=== PATIENT | male | born 1935 | race Caucasian/White ===

== ENCOUNTER 2016-12-15 08:20 | Outpatient (CLI) | payer MEDICARE, BC ==
[2016-06-22 12:54] VITALS: BP 147/57
[2016-12-15 08:43] LABS: BASOPHILS % 0.8 (0.0-1.5); EOSINOPHILS % 6.7 % (0.0-6.8); LYMPHOCYTES # 0.6 # k/uL (0.6-4.0); MEAN CORPUSCULAR HEMOGLOBIN 29.5 pg (28.0-34.0); MONOCYTES # 0.2 # k/uL (0.0-0.9); MONOCYTES % 4.4 % (0.0-11.0); NEUTROPHILS # 4.2 # k/uL (1.4-7.7)
== END 2016-12-15 08:22 ==
LOC: LAB 08:20
PROVIDERS: ATTEND Internal Medicine Nephrology
DX: N18.3 Chronic kidney disease, stage 3 (moderate) (principal); I11.9 Hypertensive heart disease without heart failure; R60.9 Edema, unspecified; Z68.29 Body mass index [BMI] 29.0-29.9, adult
CPT/HCPCS: 36415; 80069; 85025

== ENCOUNTER 2017-01-21 08:32 | Outpatient (CLI) | payer MEDICARE, BC ==
[2016-06-22 12:54] VITALS: BP 147/57
[2017-01-21 09:25] LABS: eGFR (African) > 60; eGFR (Non-African) > 60
== END 2017-01-21 08:33 ==
LOC: LAB 08:32
PROVIDERS: ATTEND Internal Medicine
DX: N18.9 Chronic kidney disease, unspecified (principal)
CPT/HCPCS: 36415; 80053

== ENCOUNTER 2017-02-25 15:12 | Emergency (ER) | payer MEDICARE, BC ==
[2017-02-25 15:40] VITALS: BP 174/76
--- NOTE | 2017-02-26 03:45 | Diagnostic Imaging Report ---
HERNAN OTERO~ [facility] [id number] [facility] [address] [place] [address]. [id number] ~ ~ ~ ~ Report Submission Date: February 25, 2017 5:13:19 PM CDT Patient ~ Study Name: BRENDA ALCARAZ ~ Date: February 25, 2017 4:16:36 PM CDT ~ Modality Type: CT\SR Gender: M ~ Description: CT C-SPINE W/O CONTRAS : 33 ~ Institution: [facility] Physician: HERNAN OTERO ~ ~ ~ ~ CT cervical spine Date of examination: 25 Feb 2017 CLINICAL HISTORY:~ CT C-SPINE, FALL TODAY, PRIOR C-SPINE SURGERIES, UNABLE TO LAY HEAD DOWN FLAT (Hx) / FALL (DICOM Hx) TECHNIQUE: 2.5 mm contiguous axial images of the cervical spine with sagittal and coronal reconstructions.~ FINDINGS: Multilevel disc space narrowing is present. Anterior plate and screws are present at C3/4 for cervical fusion.. Bone graft is present at C4/C5 and C5/C6 for cervical fusion.. The disc space at C6/C7 is narrowed. Ankylosis of the C 23 facet joints is present bilaterally. There is posterior cervical fusion extending from C2 to C4. Extensive facet joint degenerative arthritis is present in the cervical spine. Carotid artery calcification surgical clips are present in the neck. Left thoracic spine T1 laminectomy is present. IMPRESSION: No evidence of acute cervical spine fracture or subluxation Multilevel cervical fusion C2/C3 facet joint ankylosis Cervical spondylosis ~ Electronically signed on February 25, 2017 5:13:19 PM CDT by: Milo LOPEZ
--- NOTE | 2017-02-26 03:47 | Diagnostic Imaging Report ---
HERNAN OTERO~ [facility] [address] [address] ~ ~ ~ ~ Report Submission Date: February 25, 2017 5:11:18 PM CDT Patient ~ Study Name: BRENDA ALCARAZ ~ Date: February 25, 2017 4:21:07 PM CDT ~ Modality Type: CR Gender: M ~ Description: LOWER EXTREMITY : 33 ~ Institution: [facility] Physician: HERNAN OTERO ~ ~ ~ ~ 3 views left knee History: LEFT KNEE, PAIN AFTER FALL TODAY, PRIOR KNEE REPLACEMENT SURGERIES Findings: No comparison studies Post revision total knee arthroplasty with intact hardware. Bones are demineralized, no obvious evidence of acute fracture is identified. Several osseous fragments are noted at the knee joint. Postsurgical changes are noted at the knee No obvious evidence of lossening of the hardware Impression: Post revision total left knee arthroplasty, intact hardware without evidence of loosening. No obvious evidence of acute fracture or dislocation. ~ Electronically signed on February 25, 2017 5:11:18 PM CDT by: Freya LOPEZ
--- NOTE | 2017-02-26 03:48 | Diagnostic Imaging Report ---
HERNAN OTERO~ [facility] [address] [facility] [address] [place], [place]. [address] ~ ~ ~ ~ Report Submission Date: February 25, 2017 4:59:44 PM CDT Patient ~ Study Name: BRENDA ALCARAZ ~ Date: February 25, 2017 4:14:35 PM CDT ~ Modality Type: CT\SR Gender: M ~ Description: CT BRAIN W/O CONTRAST : 33 ~ Institution: [facility] Physician: HERNAN OTERO ~ ~ ~ ~ CT head History: PAIN/CONTUSION AFTER FALL TODAY No comparison studies Soft tissue swelling/ small hematoma is noted in the right ~frontal region. No evidence of acute intracranial hemorrhage. No midline shift. Cerebral atrophy. 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 No skull fracture. Paranasal air sinuses and mastoid air cells are well aerated ~ Electronically signed on February 25, 2017 4:59:44 PM CDT by: Freya LOPEZ
--- NOTE | 2017-02-26 09:05 | ED Physician Documentation ---
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 denies: weakness, numbness, neck pain, back pain, ankle swelling, leg swelling EYES/ENT: none CVS/RESP: none GI/: denies: problems urinating, nausea, vomiting - PAST HX Past History: other (chf, htn, hyperlipidemia, hypothyroidism) Immunizations: UTD Allergies/Adverse Reactions: Allergies Allergy/AdvReac Type Severity Reaction Status Date / Time oxycodone HCl Allergy Unknown Verified 02/25/17 15:54 [From OxyContin] Sulfa (Sulfonamide Allergy Unknown Verified 02/25/17 15:54 Antibiotics) Home Medications: Ambulatory Orders Medication Instructions Recorded Diltiazem HCl [Diltiazem ER] 120 tab PO D 02/29/16 Fluticasone/Vilanterol [Breo 1 inh INH DIRECTED 02/29/16 Ellipta 100-25 Mcg INH] Levothyroxine Sodium [Synthroid] 1 tab PO D 02/29/16 Simvastatin [Simvastatin] 1 tab PO D 02/29/16 Carvedilol [Coreg] 25 mg PO BID 06/22/16 Clonidine HCl [Clonidine HCl] 0.2 mg PO DAILY 06/22/16 Losartan Potassium [Losartan 100 mg PO DAILY 06/22/16 Potassium] Montelukast Sodium [Montelukast 10 mg PO PM 06/22/16 Sodium] Aspirin [Rosamaria] 81 mg PO DAILY 02/25/17 Clopidogrel Bisulfate [Plavix] 75 mg PO DAILY 02/25/17 Famotidine [Pepcid] 20 mg PO DAILY 02/25/17 Furosemide [Lasix] 40 mg PO DAILY 02/25/17 - SOCIAL HX Smoking History: non-smoker Alcohol Use: none Drug Use: none - FAMILY HX Family History: no significant history - VITAL SIGNS Vital Signs: Vital Signs Temp Pulse Resp BP Pulse Ox 99.1 F 66 20 174/76 95 02/25/17 15:30 02/25/17 15:30 02/25/17 15:30 02/25/17 15:30 02/25/17 15:30 - REVIEWED ASSESSMENTS Nursing Assessment Reviewed: Yes Vitals Reviewed: Yes Progress - Results/Orders Results/Orders: x-ray left knee, ct c-spine and head ordered - Progress Progress: pt. stable entire time in er Critical Care Note - Critical Care Note Total Time (mins): 0 ED Results Lab/Radiology - Lab Results Lab Results: none ordered - Radiology Radiology Impressions: all x-rays and ct scans unremarkable - Orders Orders: ED Orders Category Date Time Status CT BRAIN W/O CONTRAST Stat Exams 02/25/[address] C-SPINE W/O CONTRAST Stat Exams 02/25/17 Taken KNEE 3 VIEWS [RAD] Stat Exams 02/25/17 Taken Fall Physical Exam - Physical Exam General Appearance: mild distress Head: trauma (bruising forehead). No: raccoon eyes, Velazco's sign Neck: non-tender, painless ROM, trachea midline Eye: MERLINE, EOMI, lids & conjunct. nml ENT: nml external inspection, no dental injury, no oral injury, airway nml Resp/CVS: chest non-tender, no ecchymosis, breath sounds nml, no resp. distress , heart sounds nml, rib tenderness Abdomen: soft, no organomegaly, normal bowel sounds, no abdominal bruit, no distension, non-tender Neuro: oriented x3, CN's nml as tested, sensation nml, motor nml, mood/affect nml, health equipment servicer nml, reflexes nml Skin: other (bruising forehead and left knee) Back: normal inspection, no CVA tenderness, no vertebral tenderness Extremities: other (left knee positive edema, bruising, no lig. laxity) Joint: effusion (left knee). No: ligamentous instability Discharge Clincal Impression: Minor head injury Qualifiers: Encounter type: initial encounter Qualified Code(s): S00.90XA - Unspecified superficial injury of unspecified part of head, initial encounter Left knee sprain Qualifiers: Encounter type: initial encounter Involved ligament of knee: unspecified ligament Qualified Code(s): S83.92XA - Sprain of unspecified site of left knee, initial encounter Referrals: Loki Ochoa DO [Primary Care Provider] - 2 Days Home Medications: Ambulatory Orders Diltiazem HCl [Diltiazem ER] 120 tab PO D 02/29/16 Fluticasone/Vilanterol [Breo Ellipta 100-25 Mcg INH] 1 inh INH DIRECTED 02/28 Levothyroxine Sodium [Synthroid] 1 tab PO D 02/29/16 Simvastatin [Simvastatin] 1 tab PO D 02/29/16 Carvedilol [Coreg] 25 mg PO BID 06/22/16 Clonidine HCl [Clonidine HCl] 0.2 mg PO DAILY 06/22/16 Losartan Potassium [Losartan Potassium] 100 mg PO DAILY 06/22/16 Montelukast Sodium [Montelukast Sodium] 10 mg PO PM 06/22/16 Aspirin [Rosamaria] 81 mg PO DAILY 02/25/17 Clopidogrel Bisulfate [Plavix] 75 mg PO DAILY 02/25/17 Famotidine [Pepcid] 20 mg PO DAILY 02/25/17 Furosemide [Lasix] 40 mg PO DAILY 02/25/17 Comments: discharged with otc tylenol or motrin as needed for pain Condition: Stable Disposition: 01 HOME, SELF-CARE Decision to Admit: NO Decision Time: 17:25
== END 2017-02-25 17:53 | disposition home or self-care (01) ==
LOC: ED 15:12
DX: S00.90XA Unspecified superficial injury of unspecified part of head, initial encounter (principal); S83.92XA Sprain of unspecified site of left knee, initial encounter; W19.XXXA Unspecified fall, initial encounter; Y93.9 Activity, unspecified; Y99.9 Unspecified external cause status
CPT/HCPCS: 70450; 72125; 73562

== ENCOUNTER 2017-04-05 09:22 | Outpatient (CLI) | payer MEDICARE, BC ==
[2017-04-05 09:54] LABS: BASOPHILS % 1.1 (0.0-1.5); EOSINOPHILS % 7.8 % (0.0-6.8); MEAN CORPUSCULAR HEMOGLOBIN 32.4 pg (28.0-34.0); MEAN CORPUSCULAR VOLUME 97.6 fl (80.0-100.0); MONOCYTES % 6.7 % (0.0-11.0)
== END 2017-04-05 09:23 ==
LOC: LAB 09:22
PROVIDERS: ATTEND Internal Medicine Nephrology
DX: N18.3 Chronic kidney disease, stage 3 (moderate) (principal); I10 Essential (primary) hypertension; R60.9 Edema, unspecified; Z68.29 Body mass index [BMI] 29.0-29.9, adult
CPT/HCPCS: 36415; 80069; 85025

== ENCOUNTER 2017-07-20 09:22 | Outpatient (CLI) | payer MEDICARE, BC ==
[2017-07-20] MEDS ORDERED: ALBUTEROL SULFATE 2.5 MG/3 ML AMPUL.NEB NEB ONE (09:34)
== END 2017-07-20 09:23 ==
LOC: RT 09:22
PROVIDERS: ATTEND Nurse Practitioner
DX: G47.33 Obstructive sleep apnea (adult) (pediatric) (principal); R06.00 Dyspnea, unspecified
CPT/HCPCS: 94060

== ENCOUNTER 2018-04-11 08:58 | Emergency (ER) | payer MEDICARE, BC ==
--- NOTE | 2018-04-11 09:21 | ED Physician Documentation ---
General Adult - HISTORIAN Historian: patient, spouse - HPI Chief Complaint: General Adult Further Comments: yes (82 year old male patient presents with complaint of non- healing wound on right lower leg. Patient states he hit his benz getting into the car on Wednesday.) - ROS CONST: no problems EYES/ENT: none CVS/RESP: none GI/: none MS/SKIN/LYMPH: none NEURO/PSYCH: denies: headache, fainting, dizziness, tingling, numbness, difficulty walking, difficulty with speech, anxiety, depression, other - PAST HX Past History: COPD, A-Fib, CHF, hypertension Surgeries/Procedures: cholecystectomy, other (Bilateral knee replacements x 6) Allergies/Adverse Reactions: Allergies Allergy/AdvReac Type Severity Reaction Status Date / Time oxycodone HCl Allergy Unknown Verified 04/11/18 09:22 [From OxyContin] Sulfa (Sulfonamide Allergy Unknown Verified 04/11/18 09:22 Antibiotics) Home Medications: Ambulatory Orders Medication Instructions Recorded Diltiazem HCl [Diltiazem ER] 120 tab PO D 02/29/16 Fluticasone/Vilanterol [Breo 1 inh INH DIRECTED 02/29/16 Ellipta 100-25 Mcg INH] Levothyroxine Sodium [Synthroid] 1 tab PO D 02/29/16 Simvastatin [Simvastatin] 1 tab PO D 02/29/16 Clonidine HCl [Clonidine HCl] 0.2 mg PO TID 06/22/16 Losartan Potassium [Losartan 100 mg PO DAILY 06/22/16 Potassium] Famotidine [Pepcid] 20 mg PO DAILY 02/25/17 Furosemide [Lasix] 40 mg PO DAILY 02/25/17 Cephalexin [Keflex] 500 mg PO QID #28 capsule 04/11/18 Mupirocin [Bactroban] 1 appl TP BID #1 tube 04/11/18 Rivaroxaban [Xarelto] 10 mg PO DAILY 04/11/18 - SOCIAL HX Smoking History: non-smoker - FAMILY HX Family History: No - VITAL SIGNS Vital Signs: Vital Signs Temp Pulse Resp BP Pulse Ox 174/76 02/25/17 17:53 - REVIEWED ASSESSMENTS Nursing Assessment Reviewed: Yes Vitals Reviewed: Yes Progress - Progress Progress: Reviewed wound care instructions with patient and . Verbalized understanding. General Adult Physical Exam - PHYSICAL EXAM GENERAL APPEARANCE: [id number] N EENT: eye inspection normal, MERLINE RESPIRATORY: no resp distress, chest non-tender, breath sounds normal CVS: reg rate & rhythm, heart sounds normal, equal pulses, no murmur, no gallop , PMI nml, no JVD, no friction rub, 24 SKIN: warm/dry, normal color, other (Right lower extremity with 2 cm scab; erythema and hyperthermia noted around area; no drainage) EXTREMITIES: non-tender, normal range of motion, no evidence of injury, edema (1 -2+) NEURO: oriented X3, motor nml, sensation nml, mood/affect nml Discharge Clincal Impression: Cellulitis of right leg Prescriptions: Cephalexin [Keflex] 500 mg PO QID #28 capsule Mupirocin [Bactroban] 1 appl TP BID #1 tube Additional Instructions: Clean the laceration twice a day with hibiclens and rinse with water clean away any scabbed area Apply thin coat of antibiotic ointment after cleaning the wound. Cover with non-adherent bandage if able. If you have pain, take simple pain relief medication such as Tylenol or ibuprofen. Condition: Stable Disposition: 01 HOME, SELF-CARE Decision to Admit: NO Decision Time: 09:20
[2018-04-11 09:38] VITALS: BP 174/76
== END 2018-04-11 09:34 | disposition home or self-care (01) ==
LOC: ED 08:58
DX: L03.115 Cellulitis of right lower limb (principal)
CPT/HCPCS: 99282

== ENCOUNTER 2018-06-21 08:24 | Emergency (ER) | payer MEDICARE, BC ==
--- NOTE | 2018-06-21 09:03 | ED Physician Documentation ---
General Adult - HPI Stated Complaint: CELLULITIS Chief Complaint: Lower Extremity Injury Additional Information: 82-year-old white male who is developed some erythema or warmth associated to an open wound to the left lower extremity. Patient has had this for several days. Originalists seem to be getting better over the last 24 to 48 hours are seemed to be getting worse. Patient denies any fever or chills at this time. Patient has had some slight drainage from the area. - ROS CONST: no problems. denies: chills - PAST HX Past History: COPD, A-Fib, CHF, hypertension, other (diverticulitis, colon rupture.) Other History: other (abd ) Surgeries/Procedures: cholecystectomy, other (knee surgery, back surgery, necksurgery, cardiac stenting, carotid artery stenting) Immunizations: tetanus (6 yr ago) Allergies/Adverse Reactions: Allergies Allergy/AdvReac Type Severity Reaction Status Date / Time oxycodone HCl Allergy Unknown Verified 06/21/18 08:37 [From OxyContin] Sulfa (Sulfonamide Allergy Unknown Verified 06/21/18 08:37 Antibiotics) Home Medications: Ambulatory Orders Medication Instructions Recorded Diltiazem HCl [Diltiazem ER] 120 tab PO D 02/29/16 Fluticasone/Vilanterol [Breo 1 inh INH DIRECTED 02/29/16 Ellipta 100-25 Mcg INH] Levothyroxine Sodium [Synthroid] 1 tab PO D 02/29/16 Simvastatin 1 tab PO D 02/29/16 Clonidine HCl 0.2 mg PO TID 06/22/16 Losartan Potassium 100 mg PO DAILY 06/22/16 Famotidine [Pepcid] 20 mg PO DAILY 02/25/17 Furosemide [Lasix] 40 mg PO DAILY 02/25/17 Mupirocin [Bactroban] 1 appl TP BID #1 tube 04/11/18 Rivaroxaban [Xarelto] 10 mg PO DAILY 04/11/18 Cephalexin [Keflex] 500 mg PO TID #21 capsule 06/21/18 - SOCIAL HX Smoking History: non-smoker Alcohol Use: none Drug Use: none - FAMILY HX Family History: No - VITAL SIGNS Vital Signs: Vital Signs Temp Pulse Resp BP Pulse Ox 97.3 F L 55 L 20 155/87 98 06/21/18 08:34 06/21/18 08:34 06/21/18 08:34 06/21/18 08:34 06/21/18 08:34 - REVIEWED ASSESSMENTS Nursing Assessment Reviewed: Yes Vitals Reviewed: Yes General Adult Physical Exam - PHYSICAL EXAM GENERAL APPEARANCE: mild distress NECK: normal inspection RESPIRATORY: no resp distress, chest non-tender, breath sounds normal. No: wheezes, rales, rhonchi CVS: heart sounds normal, irregularly irregular rhy ABDOMEN: soft, no organomegaly, normal bowel sounds SKIN: other (erythematous (4 cm) and small nodule to the L pretibial area. Tender to touch. Mild warmth noted. ) EXTREMITIES: other (LN normal) NEURO: oriented X3, mood/affect nml, cognition normal Discharge Clincal Impression: Left leg cellulitis Prescriptions: Cephalexin [Keflex] 500 mg PO TID #21 capsule Referrals: Loki Ochoa, [Primary Care Provider] - 2 Days Additional Instructions: Warm compress to the leg area Take Cephalexin 500mg 3 times a day for one week If redness seems to be spreading to see Dr Ochoa or return to the ED. Condition: Stable Disposition: 01 HOME, SELF-CARE Decision to Admit: NO Date of Decison to Admit: 06/21/18 Decision Time: 09:09
[2018-06-21 09:18] VITALS: BP 130/73
== END 2018-06-21 09:17 | disposition home or self-care (01) ==
LOC: ED 08:24
DX: L03.116 Cellulitis of left lower limb (principal)
CPT/HCPCS: 99283

== ENCOUNTER 2019-04-18 09:32 | Emergency (ER) | payer MEDICARE, BC ==
--- NOTE | 2019-04-18 09:40 | ED Physician Documentation ---
General Adult - HISTORIAN Historian: patient - HPI Stated Complaint: sore on left lower leg Chief Complaint: Skin Rash Onset: days ago (3) Timing: still present Severity: mild Further Comments: yes (He denies any obvious injury. He states has had the sore x 3 days. No fever. No significant pain. the area is draining. He has no other complaints) - ROS CONST: no problems MS/SKIN/LYMPH: rash - PAST HX Past History: hypertension Allergies/Adverse Reactions: Allergies Allergy/AdvReac Type Severity Reaction Status Date / Time oxycodone HCl Allergy Unknown Verified 06/21/18 08:37 [From OxyContin] Sulfa (Sulfonamide Allergy Unknown Verified 06/21/18 08:37 Antibiotics) Home Medications: Ambulatory Orders Medication Instructions Recorded Diltiazem HCl [Diltiazem ER] 120 tab PO D 02/29/16 Fluticasone/Vilanterol [Breo 1 inh INH DIRECTED 02/29/16 Ellipta 100-25 Mcg INH] Levothyroxine Sodium [Synthroid] 1 tab PO D 02/29/16 Simvastatin 1 tab PO D 02/29/16 Clonidine HCl 0.2 mg PO TID 06/22/16 Losartan Potassium 100 mg PO DAILY 06/22/16 Famotidine [Pepcid] 20 mg PO DAILY 02/25/17 Furosemide [Lasix] 40 mg PO DAILY 02/25/17 Mupirocin 2% Oint. [Bactroban] 1 appl TP BID #1 tube 04/11/18 Rivaroxaban [Xarelto] 10 mg PO DAILY 04/11/18 Cephalexin [Keflex] 500 mg PO TID #21 capsule 06/21/18 - SOCIAL HX Smoking History: non-smoker Alcohol Use: none Drug Use: none - FAMILY HX Family History: No - VITAL SIGNS Vital Signs: Vital Signs Temp Pulse Resp BP Pulse Ox 130/73 06/21/18 09:17 - REVIEWED ASSESSMENTS Nursing Assessment Reviewed: Yes Vitals Reviewed: Yes General Adult Physical Exam - PHYSICAL EXAM GENERAL APPEARANCE: no distress EENT: eye inspection normal, no signs of dehydration NECK: normal inspection RESPIRATORY: no resp distress, chest non-tender, breath sounds normal CVS: reg rate & rhythm, heart sounds normal ABDOMEN: soft, normal bowel sounds, no distension, non-tender BACK: normal inspection SKIN: warm/dry, other (left lower leg 2 cm area with yellow drainge and clear drainage. No pain. Pulses + sensation + and edema non pitting ) EXTREMITIES: non-tender, normal range of motion, edema NEURO: oriented X3 Discharge Clincal Impression: Left leg cellulitis Referrals: Loki Ochoa, [Primary Care Provider] - 2 Days Comments: 1. Keflex 500 mg take 1 by mouth twice daily x 10 days 2. Keep area clean and dry 3. Elevate leg when possible 4. Follow up with PCP in 2-4 days or sooner for any change in wound 5. Return to ER for any increasing concerns Condition: Stable Disposition: 01 HOME, SELF-CARE Decision to Admit: NO Date of Decison to Admit: 04/19/19 Decision Time: 10:10
== END 2019-04-18 10:16 | disposition home or self-care (01) ==
LOC: ED 09:32
DX: L03.116 Cellulitis of left lower limb (principal)
CPT/HCPCS: 87070

== ENCOUNTER 2019-09-26 09:37 | Emergency (ER) | payer MEDICARE, BC ==
--- NOTE | 2019-09-26 10:14 | ED Physician Documentation ---
Lower Extremity Problem - HISTORIAN Historian: patient, spouse - HPI Stated Complaint: leg pain & swelling Chief Complaint: Lower Extremity Problem Additional Information: 83 year old male presents ambulatory with . states he fell a week ago and since then has had left lower extremity swelling and redness. he is on Eliquis and diuretic; however, is very concerned about a blood clot and would like it ruled out. There is noted edema to both extremities; patient states that he does not wear vivienne hose as ordered because they are not comfortable. Location of Injury: L leg Onset: days ago Timing: still present, better Recent Injury: Yes (1 week ago from standing position- fall) Where: home Severity: mild Quality: swelling, tenderness Exacerbated By: walking Relieved By: rest Associated Symptoms: denies: chest pain, shortness of breath, rapid heart rate - ROS CONST: no problems MS/SKIN/LYMPH: none CVS/RESP: none GI/: none EYES/ENT: none NERUO/PSYCH: difficulty walking - PAST HX Past History: other (COPD) PE Risk Factors: hypertension Other History: cardiac disease, CAD, hypertension Surgeries/Procedures: cholecystectomy, other (BKR) Immunizations: UTD Allergies/Adverse Reactions: Allergies Allergy/AdvReac Type Severity Reaction Status Date / Time oxycodone HCl Allergy Unknown Verified 09/26/19 10:01 [From OxyContin] Sulfa (Sulfonamide Allergy Unknown Verified 09/26/19 10:01 Antibiotics) Home Medications: Ambulatory Orders Medication Instructions Recorded Levothyroxine Sodium [Synthroid] 1 tab PO D 02/29/16 Simvastatin 1 tab PO D 02/29/16 Clonidine HCl 0.2 mg PO TID 06/22/16 Losartan Potassium 100 mg PO DAILY 06/22/16 Famotidine [Pepcid] 20 mg PO DAILY 02/25/17 Furosemide [Lasix] 40 mg PO DAILY 02/25/17 Rivaroxaban [Xarelto] 15 mg PO DAILY 04/11/18 Albuterol Sulfate [Proair HFA] 1 inh IH PRN PRN 09/26/19 Budesonide/Formoterol Fumarate 1 puff IH 09/26/19 [Symbicort 160-4.5 Mcg Inhaler] Cephalexin [Keflex] 500 mg PO BID #20 capsule 09/26/19 Hydralazine HCl 25 mg PO QDAY 09/26/19 Verapamil HCl [Verapamil Sr] 120 mg PO QDAY 09/26/19 - SOCIAL HX Smoking History: non-smoker Alcohol Use: none Drug Use: none - FAMILY HX Family History: none - VITAL SIGNS Vital Signs: Vital Signs Temp Pulse Resp BP Pulse Ox 98.2 F 56 L 16 172/73 98 09/26/19 09:40 09/26/19 09:40 09/26/19 09:40 09/26/19 09:40 09/26/19 09:40 - REVIEWED ASSESSMENTS Nursing Assessment Reviewed: Yes Vitals Reviewed: Yes ED Results Lab/Radiology - Radiology Radiology Impressions: Examination: Ultrasound left vein History: LEFT LOWER LEG SWELLING AFTER FALL Findings: Sonographic evaluation of the left lower extremity venous system from the groin to the popliteal fossa inclusive. Normal compressibility. No luminal filling defect. Normal waveforms and response to augmentation. No popliteal region fluid collection. Impression: No evidence for deep venous thrombosis. Electronically signed on Sep 26, 2019 10:48:02 AM SUPERINTENDENT METER TESTS by: Corey Young - Orders Orders: ED Orders Category Date Time Status LE DVT STUDY UNILAT [US U OR L EXT VEINS UNILAT] [US] Exams 09/26/19 Completed Stat Lower Extremity Problem - EXAM General Appearance: no distress Hips: bilateral hip: non-tender, normal inspection, normal range of motion, no evidence of injury Legs: left: swelling Knees: bilateral: non-tender, normal inspection, normal range of motion, no evidence of injury Ankle: left: swelling Neuro/Tendon: normal sensation, normal motor functions, normal tendon functions EENT: eye inspection normal, ENT inspection normal, pharynx normal, no signs of dehydration, MERLINE, TM's nml RESPIRATORY: chest non-tender, breath sounds normal CVS: reg rate & rhythm, heart sounds normal, equal pulses JOINT: joints nml, nml ROM, Nml gait/weight bearing VASCULAR: no vascular compromise, pulses full/equal NEURO/PSYCH: oriented X3, CN's nml as tested, motor nml, sensation nml, mood/affect nml, cognition normal SKIN: warm/dry, normal color (redness/swelling to the left lower leg) Discharge Clincal Impression: Left leg cellulitis Prescriptions: Cephalexin [Keflex] 500 mg PO BID #20 capsule Referrals: Loki Ochoa DO [Primary Care Provider] - 2 Days Additional Instructions: No blood clots Take Cephalexin 500 mg by mouth twice a day for 10 days Keep leg elevated when sitting Follow up with PCP next week for re-evaluation Condition: Good Disposition: 01 HOME, SELF-CARE Decision to Admit: NO Decision Time: 10:58
--- NOTE | 2019-09-26 10:53 | Diagnostic Imaging Report ---
PATIENT MR#: [id number] PATIENT PATIENT NAME: BRENDA ALCARAZ DATE OF : 1935 REFERRING PHYSICIAN: Betsy Escudero EXAM DATE: 09/26/2019 ACCESSION NUMBER: [id number] EXAM DESCRIPTION: US U OR L EXT VEINS UNILAT Examination: Ultrasound left vein History: LEFT LOWER LEG SWELLING AFTER FALL Findings: Sonographic evaluation of the left lower extremity venous system from the groin to the popl iteal fossa inclusive. Normal compressibility. No luminal filling defect. Normal waveforms and response to augmen tation. No popliteal region fluid collection. Impression: No evidence for deep venous thrombosis. Read by: Dr. Corey Young Transcribed by: Transcribed Date: Electronically signed by: Dr. Corey Young Date signed: 09/26/2019 10:52:49 AM
[2019-09-26 11:01] VITALS: BP 150/70
== END 2019-09-26 10:54 | disposition home or self-care (01) ==
LOC: ED 09:37
DX: L03.116 Cellulitis of left lower limb (principal)